=== PATIENT | female | born 1965 | race Native Hawaiian/Other Pacific Islander ===

== ENCOUNTER 2021-07-16 17:24 | Emergency (ER) | payer BC ==
[~2021-07-16] VITALS: Ht 165.1 cm; Wt 65.8 kg
[2021-07-16 18:43] VITALS: BP 121/70; TEMP 98.7
== END 2021-07-16 18:43 | disposition home or self-care (01) ==
LOC: ED 17:24
DX: J03.90 Acute tonsillitis, unspecified (principal); Z20.822 Contact with and (suspected) exposure to COVID-19
CPT/HCPCS: 87635; 87651; 99283; U0003